=== PATIENT | female | born 1990 | race Caucasian/White ===

== ENCOUNTER 2017-11-06 10:12 | Emergency (ER) | payer OTHER ==
[~2017-11-06] VITALS: Ht 157.5 cm; Wt 79.4 kg
[~2017-11-06 10:12] MED LIST: ACETAMINOPHEN-1 EAC1 PO; BENZONATATE100 MG; CEPHALEXIN 500500 M3 PO; DOXYCYCLINE 10100 MG PO; FLEXERIL PO; NOHOMEMEDICATIONS; NORCO 5-325 TA1 EACH PO; PROMETHAZINE D480 ML PO; ROBAXIN 750 MG750 M1 PO; TRAMADOL 50 MG50 MG PO; ZOFRAN ODT4 MG PO; ZPAK PO
[2017-11-06] MEDS ORDERED: ZPAK PO (10:37)
[2017-11-06] MEDS ORDERED: ACETAMINOPHEN-1 EAC1 PO (10:38)
[2017-11-06] MEDS ORDERED: TESSALON PERLE100 MG PO (10:38)
[2017-11-06] MEDS ORDERED: PROAIR HFA8.5 GM INH (10:38)
[2017-11-06] MEDS ORDERED: MEDROLDOSEPACK PO (10:38)
[2017-11-06] MEDS ORDERED: PROMETHAZINE V473 ML PO (10:38)
[2017-11-06 10:45] VITALS: BP 114/80
== END 2017-11-06 10:46 | disposition home or self-care (01) ==
LOC: M.ERS 10:12
DX: J20.9 Acute bronchitis, unspecified (principal); F17.210 Nicotine dependence, cigarettes, uncomplicated; Z98.890 Other specified postprocedural states; Z88.6 Allergy status to analgesic agent; Z88.5 Allergy status to narcotic agent; Z88.2 Allergy status to sulfonamides